=== PATIENT | female | born 1930 | race Caucasian/White ===

== ENCOUNTER 2017-05-22 16:37 | Emergency (ER) | payer MEDICARE, BC ==
[2017-05-22] MEDS: Sodium Chloride 0.9% 1,000 ML IV SCH ×2 (17:00→18:12)
[2017-05-22] MEDS ORDERED: Ondansetron 4 MG/2 ML SDV IVPUSH ONE (17:02)
--- NOTE | 2017-05-22 18:20 | EDM.PDOC ---
ED HPI GENERAL MEDICAL PROBLEM - General Chief Complaint: Neuro Symptoms/Deficits Stated Complaint: DISORIENTATION Time Seen by Provider: 05/22/17 16:37 Source of Information: Reports: Patient, EMS History Limitations: Reports: Altered Mental Status - History of Present Illness INITIAL COMMENTS - FREE TEXT/NARRATIVE: c/o heat stroke pt lives independently, EMS reports she was gardening for 3h, apparently found unresponsive in garden sitting on a bench, lives in assisted living at [facility] which is in [facility], T 103 by EMS, ice backs applied and dx with presumptive heat stroke, T 97.8 on arrival at ED, dense L hemiparesis with L facial droop and head and eyes deviated to the R, did answer some questions, could not move LUE or LLE after 20 minutes on return from CT she had inc'd movement of L side, now able to lift her LLE 1 foot off of the bed and scratch her nose, still quite weak on the L side portable CxR shows no discrete infiltrate, shallow breath, cardiomegaly d/w Dr Lao neurologist at [facility] who accepted her in transfer to ED, he does not recommend thrombolytics d/t her age pt with clinical dehydation with dec'd skin turgor, has BUN/creat 44/2.0 today increased from 22/0.7 two years ago CRP 2.2 suggesting possible infectious cause of her fever, does not appear pulmonary, u/a still pending WBC 14.9 and 84.6% segs c/w either heat stroke or possible ifnection does have a curious large red blanching rash on the inner aspect of her right thigh that has not changed in appearance in one hour, possibly ice burn from ice packs from EMS - Related Data Allergies Allergy/AdvReac Type Severity Reaction Status Date / Time Sulfa (Sulfonamide Allergy Rash Verified 01/18/15 13:17 Antibiotics) Home Meds: Home Meds Aspirin [Halfprin] 81 mg PO DAILY 01/18/15 [History] Calcium Carbonate [Calcium] 1 tab PO BID 01/18/15 [History] Fish Oil/[place]-3 Fatty Acids [Fish Oil 1,000 MG] 1 tab PO BID 01/18/15 [History] Multivit-Min/FA/Lycopene/Lut [Centrum Silver] 1 tab PO 1200 01/18/15 [History] SitaGLIPtin [Januvia] 50 mg PO 1200 01/18/15 [History] metFORMIN [Glucophage] 500 mg PO BID 01/18/15 [History] Glimepiride [Amaryl] 2 mg PO BIDMEALS tablet 01/23/15 [Rx] Alendronate [Fosamax] 70 mg PO Q7D@0600 #4 tablet 01/26/15 [Rx] Cefuroxime [Ceftin] 250 mg PO BID #14 tab 01/26/15 [Rx] traMADol [Ultram] 50 mg PO Q6H PRN #30 tablet 01/26/15 [Rx] Social & Family History - Tobacco Use Smoking Status *Q: Never Smoker Second Hand Smoke Exposure: No - Alcohol Use Days Per Week of Alcohol Use: 0 - Recreational Drug Use Recreational Drug Use: No ED ROS GENERAL - Review of Systems Review Of Systems: See Below Constitutional: Reports: No Symptoms HEENT: Reports: No Symptoms Respiratory: Reports: No Symptoms Cardiovascular: Reports: No Symptoms Endocrine: Reports: No Symptoms GI/Abdominal: Reports: No Symptoms : Reports: No Symptoms Musculoskeletal: Reports: No Symptoms Skin: Reports: No Symptoms Neurological: Reports: Trouble Speaking, Difficulty Walking, Weakness, Change in Speech Psychiatric: Reports: No Symptoms Hematologic/Lymphatic: Reports: No Symptoms Immunologic: Reports: No Symptoms ED EXAM, NEURO - Physical Exam Exam: See Below Exam Limited By: Altered Mental Status General Appearance: Alert, WD/WN, Other (speaks with hesitancy, good articulation, answers in complete sentences, O x 3) Eye Exam: Bilateral Eye: Other (pupils 3/3 mm reactive, conjugate, no nystagmus , tracks to midline but not to L, eyes and head turned to the R) Ears: Normal External Exam Nose: Normal Inspection, Normal Mucosa, No Blood Throat/Mouth: Normal Inspection, Normal Lips, Normal Oropharynx, Normal Voice, No Airway Compromise Head Exam: Atraumatic, Normocephalic Neck: Normal Inspection, Supple, Non-Tender, Full Range of Motion, Other (no bruit) Respiratory/Chest: No Respiratory Distress, Lungs Clear, Normal Breath Sounds, No Accessory Muscle Use, Chest Non-Tender Cardiovascular: Regular Rate, Rhythm, No Edema, No Gallop, No JVD, No Rub, Other (occasional premature beat, 2/6 GONZALEZ at LSB, quiet precordium) GI/Abdominal: Normal Bowel Sounds, Soft, Non-Tender, No Organomegaly, No Distention, No Mass DTR: 1+: Patella (R), Patella (L), 2+: Bicep (R), Bicep (L) Back Exam: Normal Inspection, Full Range of Motion, NT Extremities: Normal Inspection, Non-Tender, No Pedal Edema, Other (R ankle flex/ ext 5/5, 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, L hand jewelry casting model maker 3/5, wiggles toes, not able to flex/ext ankle on command, when I placed my fingers in her L palm and asked her to squeeze she used her R hand to squeeze the fingers of the L hand, L facial droop persistant, palpebral) Psychiatric: Flat Affect Skin Exam: Warm, Dry, Intact, Normal Color, Other (large ~25 x 20 bright red blanchable rash on inner aspect of R thigh, discrete linear geographic cutoff superiorly, irregular with lattice appearance and normal skin interposed inferiorly) Course - Vital Signs Last Recorded V/S: Last Vital Signs Temp 36.3 C 05/22/17 16:40 Pulse 86 05/22/17 16:40 Resp 22 H 05/22/17 16:40 BP 123/56 L 05/22/17 16:40 Pulse Ox 97 05/22/17 16:40 - Orders/Labs/Meds Orders: Active Orders 24 hr Category Date Time Status EKG Documentation Completion [RC] ASDIRECTED Care 05/22/17 16:57 Active Insert Urinary Catheter [OM.PC] Q24H Care 05/22/17 17:00 Ordered Urinary Catheter Assessment [RC] QSHIFT Care 05/22/17 16:56 Active Chest 1V Frontal [CR] Stat Exams 05/22/17 16:54 Taken Head wo Cont [CT] Stat Exams 05/22/17 16:55 Taken TROPONIN I [CHEM] Stat Lab 05/22/17 16:45 Received Sodium Chloride 0.9% [Normal Saline] 1,000 ml Med 05/22/17 17:15 Active IV ASDIRECTED EKG 12 Lead [EK] Routine Ther 05/22/17 16:57 Ordered Medication Orders Sodium Chloride (Normal Saline) 1,000 mls @ 999 mls/hr IV ASDIRECTED FARHANA Labs: Laboratory Tests 05/22/17 05/22/1705/22/17 Range/Units 16:45 16:45 16:45 WBC 14.9 H (4.5-12.0) X10-3/uL RBC 4.28 (3.23-5.20) x10(6)uL Hgb 13.5 (11.5-15.5) g/dL Hct 40.3 (30.0-51.3) % MCV 94.2 (80-96) fL MCH 31.5 (27.7-33.6) pg MCHC 33.4 (32.2-35.4) g/dL RDW 13.1 (11.5-15.5) % Plt Count 255 (125-369) X10(3)uL MPV 11.6 H (7.4-10.4) fL Neut % (Auto) 84.6 H (46-82) % Lymph % (Auto) 8.5 L (13-37) % [place] % (Auto) 5.1 (4-12) % Eos % (Auto) 1 (1.0-5.0) % Baso % (Auto) 1 (0-2) % Neut # (Auto) 12.5 H (1.6-8.3) # Lymph # (Auto) 1.3 (0.6-5.0) # Waller # (Auto) 0.8 (0.0-1.3) # Eos # (Auto) 0.2 (0.0-0.8) # Baso # (Auto) 0.1 (0.0-0.2) # PT 10.1 (8.7-11.1) INR 1.00 (0.89-1.13) Sodium 135 (135-145) mmol/L Potassium 4.7 D (3.5-5.3) mmol/L Chloride 102 (100-110) mmol/L Carbon Dioxide 22 L (23-29) mmol/L BUN 44 H D (8-23) mg/dL Creatinine 2.0 H* (0.6-1.3) mg/dL Est Cr Clr Drug Dosing TNP Estimated GFR (MDRD) 23 L (>60) BUN/Creatinine Ratio 22.0 H (9-20) Glucose 219 H D (80-116) mg/dL Calcium 10.1 (8.6-10.2) mg/dL Total Bilirubin 0.3 (0.1-1.3) mg/dL AST 22 D (5-27) IU/L ALT 21 D (14-26) IU/L Alkaline Phosphatase 39 L (56-112) IU/L C-Reactive Protein 2.2 H (0.0-1.0) mg/dL B-Natriuretic Peptide (0-100) pg/mL Total Protein 7.6 (6.0-8.0) g/dL Albumin 4.0 (2.9-4.5) g/dL Globulin 3.6 g/dL Albumin/Globulin Ratio 1.1 Urine Color (YELLOW) Urine Appearance (CLEAR) Urine pH (5.0-6.5) Ur Specific [place] (1.010-1.025) Urine Protein (NEGATIVE) mg/dL Urine Glucose (UA) (NEGATIVE) mg/dL Urine Ketones (NEGATIVE) mg/dL Urine Occult Blood (NEGATIVE) Urine Nitrite (NEGATIVE) Urine Bilirubin (NEGATIVE) Urine Urobilinogen (NEGATIVE) mg/dL Ur Leukocyte Esterase (NEGATIVE) Urine RBC (0) Urine WBC (0) Ur Squamous Epith Cells (NS,R,O) Urine Bacteria (NS) 05/22/17 05/22/17 Range/Units 16:45 17:43 WBC (4.5-12.0) X10-3/uL RBC (3.23-5.20) x10(6)uL Hgb (11.5-15.5) g/dL Hct (30.0-51.3) % MCV (80-96) fL MCH (27.7-33.6) pg MCHC (32.2-35.4) g/dL RDW (11.5-15.5) % Plt Count (125-369) X10(3)uL MPV (7.4-10.4) fL Neut % (Auto) (46-82) % Lymph % (Auto) (13-37) % Wall[place] % (Auto) (4-12) % Eos % (Auto) (1.0-5.0) % Baso % (Auto) (0-2) % Neut # (Auto) (1.6-8.3) # Lymph # (Auto) (0.6-5.0) # Waller # (Auto) (0.0-1.3) # Eos # (Auto) (0.0-0.8) # Baso # (Auto) (0.0-0.2) # PT (8.7-11.1) INR (0.89-1.13) Sodium (135-145) mmol/L Potassium (3.5-5.3) mmol/L Chloride (100-110) mmol/L Carbon Dioxide (23-29) mmol/L BUN (8-23) mg/dL Creatinine (0.6-1.3) mg/dL Est Cr Clr Drug Dosing Estimated GFR (MDRD) (>60) BUN/Creatinine Ratio (9-20) Glucose (80-116) mg/dL Calcium (8.6-10.2) mg/dL Total Bilirubin (0.1-1.3) mg/dL AST (5-27) IU/L ALT (14-26) IU/L Alkaline Phosphatase (56-112) IU/L C-Reactive Protein (0.0-1.0) mg/dL B-Natriuretic Peptide 175 H (0-100) pg/mL Total Protein (6.0-8.0) g/dL Albumin (2.9-4.5) g/dL Globulin g/dL Albumin/Globulin Ratio Urine Color Yellow (YELLOW) Urine Appearance Clear (CLEAR) Urine pH 5.0 (5.0-6.5) Ur Specific [place] 1.010 (1.010-1.025) Urine Protein Negative (NEGATIVE) mg/dL Urine Glucose (UA) >1000 H (NEGATIVE) mg/dL Urine Ketones Negative (NEGATIVE) mg/dL Urine Occult Blood Negative (NEGATIVE) Urine Nitrite Negative (NEGATIVE) Urine Bilirubin Negative (NEGATIVE) Urine Urobilinogen Normal (NEGATIVE) mg/dL Ur Leukocyte Esterase Negative (NEGATIVE) Urine RBC 0-5 (0) Urine WBC 0-5 (0) Ur Squamous Epith Cells Few H (NS,R,O) Urine Bacteria Few H (NS) Meds: Medications Generic Name Dose Route Start Last Admin Trade Name Freq PRN Reason Stop Dose Admin Sodium Chloride 1,000 mls @ 999 mls/hr 05/22/17 17:15 Normal Saline IV ASDIRECTED FARHANA Discontinued Medications Generic Name Dose Route Start Last Admin Trade Name Freq PRN Reason Stop Dose Admin Ondansetron HCl 4 mg 05/22/17 17:02 Zofran IVPUSH 05/22/17 17:03 ONETIME ONE Departure - Departure Time of Disposition: 18:32 Disposition: DC/Tfer to Hospice - Home 50 Condition: Good Clinical Impression: Acute CVA (cerebrovascular accident), Left hemiparesis, Apraxia complicating stroke, Fever, Leukocytosis, Left shift, Dehydration, Acute on chronic renal failure, Rash - Discharge Information Forms: ED Department Discharge - My Orders Last 24 Hours: My Active Orders 05/22/17 16:45 TROPONIN I [CHEM] Stat 05/22/17 16:54 Chest 1V Frontal [CR] Stat 05/22/17 16:55 Head wo Cont [CT] Stat 05/22/17 16:56 Urinary Catheter Assessment [RC] QSHIFT 05/22/17 16:57 EKG Documentation Completion [RC] ASDIRECTED EKG 12 Lead [EK] Routine 05/22/17 17:00 Insert Urinary Catheter [OM.PC] Q24H 05/22/17 17:15 Sodium Chloride 0.9% [Normal Saline] 1,000 ml IV ASDIRECTED - Assessment/Plan Last 24 Hours: My Active Orders 05/22/17 16:45 TROPONIN I [CHEM] Stat 05/22/17 16:54 Chest 1V Frontal [CR] Stat 05/22/17 16:55 Head wo Cont [CT] Stat 05/22/17 16:56 Urinary Catheter Assessment [RC] QSHIFT 05/22/17 16:57 EKG Documentation Completion [RC] ASDIRECTED EKG 12 Lead [EK] Routine 05/22/17 17:00 Insert Urinary Catheter [OM.PC] Q24H 05/22/17 17:15 Sodium Chloride 0.9% [Normal Saline] 1,000 ml IV ASDIRECTED
[2017-05-22 20:11] VITALS: BP 150/68
--- NOTE | 2017-05-26 11:14 | CR ---
INDICATION: CVA. CHEST, AP UPRIGHT: Poor inspiration. Right lung is clear. Left lung has some atelectatic changes over the mid to lower lung. Mild cardiomegaly without significant underlying failure, considering the poor inspiration. MTDD
== END 2017-05-22 18:45 | disposition hospice, home (50) ==
LOC: FB.ED 16:37
DX: I63.9 Cerebral infarction, unspecified (principal); R48.2 Apraxia; G81.94 Hemiplegia, unspecified affecting left nondominant side; N17.9 Acute kidney failure, unspecified; N18.9 Chronic kidney disease, unspecified; D72.829 Elevated white blood cell count, unspecified; E86.0 Dehydration; Z79.82 Long term (current) use of aspirin; Z88.2 Allergy status to sulfonamides
CPT/HCPCS: 36415; 51702; 70450; 71010; 80053; 81001; 83880; 84484; 85025; 85610; 86140; 93005; 96361; 96374; 99285; J2405; J7040

== ENCOUNTER 2017-06-18 11:45 | Emergency (ER) | payer MEDICARE, BC ==
--- NOTE | 2017-06-18 13:35 | CR ---
INDICATION: Crackles in bases, confusion. CHEST: AP and lateral upright views of the chest with two lateral views revealed the heart to be slightly enlarged. The aorta is tortuous with calcification in the arch and descending portion. Dextroconvex scoliosis of the thoracic spine of moderate degree is noted with demineralization compatible with osteoporosis. Evidence of previous fracture is noted at the proximal right humerus with healing. Parenchymal change is noted at the left lung base, which may be on the basis of atelectasis and possibly some minimal patchy pneumonia, and/or fibrosis. The right lung and pleural space were unremarkable. IMPRESSION: 1. Scarring versus linear atelectasis, possibly even minimal pneumonia at the left lower lobe. 2. ASHD with mild cardiomegaly. 3. Osteoporosis, scoliosis, and compression fracture severe at T12, which is progressively more severe than on the 01/20/2015 examination of the thoracic spine. MTDD
--- NOTE | 2017-06-18 15:03 | CT ---
INDICATION: Confusion, slow response this morning. Lethargic, history of falls. CVA one month ago. Right-sided weakness, slurred speech. CT HEAD WITHOUT CONTRAST: Serial contiguous 2.5 and 5-mm sections were obtained through the brain without contrast 06/18/2017 and compared with 2016. Total Exam DLP = 1898.72 mGy-cm. There is again noted calcification in the vertebral and internal carotid arteries. No shift of midline structures was identified. The ventricles are slightly more prominent than on the previous study, suggesting progressive central atrophy. Extensive decreased density is noted in the white matter with additional cortical abnormality - decreased density moderately extensive in the parietal - posteroparietal area on the right in an area of previous ischemia and compatible with encephalomalacia due to a thrombotic CVA in that area. The extensive low-density abnormality in the white matter, which appears similar to the previous study, is compatible with severe microvascular disease or possibly anoxic encephalopathy. This should be correlated clinically. The area of encephalomalacia extends from the area of the temporal lobe through the parietal lobe near the convexity. The scan was repeated due to the patient coughing. No bleeding site or hematoma was identified. No definite acute intracranial abnormality was seen. A large area of probable infarct is noted in the right basal ganglia. Ischemia was suggested in that area on the previous study to a much lesser extent than the extent of abnormality seen today. This area is felt to be most compatible with evolution of an area of lacunar infarct. What appears to be a retention cyst is noted in the left maxillary antrum. Minimal thickening of the lining of the base of the right frontal air cell is noted - no definite findings for acute sinusitis were seen. Mastoid air cells appear well aerated on the right with some opacified air cells on the left, raising question of moderate degree of mastoiditis - correlate clinically. No definite cranial abnormality was seen. IMPRESSION: 1. No definite acute intracranial abnormality - no bleeding site or hematoma. 2. Evolution of thrombotic CVA, areas of encephalomalacia in the parietal lobe , temporal lobe, and right basal ganglia. 3. Progressive central atrophy. 4. Severe white matter disease which may be on the basis of severe microvascular type changes or possibly anoxic encephalopathy - correlate clinically. 5. Calcifications in the vertebral and internal carotid arteries. 6. Cannot exclude left-sided mastoiditis. 7. Retention cyst left maxillary antrum with minimal thickening of the lining of the right frontal air cell base. Report was called to Dr. Madrid at 1241 hours, 06/18/2017. [facility]
[2017-06-18 16:07] VITALS: BP 118/61
--- NOTE | 2017-06-23 17:07 | ER ---
DATE SEEN: 06/18/2017 CHIEF COMPLAINT: She is now in the prison. She is status post 05/22/2017 heat stroke followed by a significant right CVA, was transferred to [place] for further care. She returned to the prison. SUBJECTIVE: The prison staff noted she has had a blank stare. She is more confused than usual and less comprehensive than usual. Dr. Barry ordered laboratory studies right before patient came, so they have been available for me to look at. Complete metabolic panel is normal, except for glucose of 70, slightly low; GFR considered to be 42; creatinine 1.2; BUN is 22; AST 23; SGOT 25. White count 7000, PMNs 64, lymphocytes 22, monos 9.2, hemoglobin 11.6, and platelets 150,000. CAT scan was performed before I was able to see the patient, and it was read as cortical abnormality, mild extensive change and decreased density in the posterior parietal area on the right, consistent with a previous documented ischemia and has significant encephalomalacia associated with a thrombotic CVA in that area. 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 She has mild calcification in vertebral and internal carotid arteries, and this suggests possible mild left mastoiditis. She has a large area of probable infarct in right basal ganglia, which was seen in the previous study but to a lesser extent. She has extensive progressive central atrophy. PAST MEDICAL HISTORY: Significant for congestive heart failure, type 2 diabetes, hypertension, chronic low back pain, acute on chronic kidney disease, GERD, and dyslipidemia with a left CVA previously documented in May 2017. The patient is not able to communicate. She does not respond more than minimal comentary, which is more grunts than specific words uttered. Information on habits claimed from the prison chart. REVIEW OF SYSTEMS: I was unable to perform review of systems. PHYSICAL EXAMINATION: VITAL SIGNS: Blood pressure 118/61, heart rate 79, oxygen saturation 98%, temperature 97.1, and respirations 18. GENERAL: Alert woman, who does not have receptive aphasia, does follow my eyes, but she has minimal commentary. She has flat affect and occasionally with minimal movements, groans as if the patient had pain. HEENT: Pupils equal, round, and reactive to light. Pharynx without abnormality, has good gag in place. Uvula midline. Tongue is midline. She had good tongue strength bilaterally. No facial asymmetry. No dysesthesia or hypoesthesia of the face. NECK: No bruits. No thyromegaly. No masses. No adenopathy. Neck is supple. LUNGS: Clear to auscultation without rales or rhonchi, except for posterior basilar significant crackles at the lower 50% of the left lung. No retraction. No chest wall pain with palpation. HEART: S1, S2. There is slight splitting of first heart sound. Soft murmur is heard. Murmur is systolic. ABDOMEN: Soft. No guarding. No abdominal discomfort. EXTREMITIES: Without edema. Deep tendon reflexes hypoactive in upper and lower extremities. No upgoing toes. Decreased strength in left leg compared to right. She has slight unsteadiness when she stands and has a very significant flat affect. Repeat CT unchanged, except for what appears to be slight new basilar ganglia changes, which are not reiterated on his summary, but Dr. Dudley noted a rather large area of probably infarct in right basal ganglia. Ischemia was suggested in the area, on the previous study was less than it is today, but no acute stroke, would suggest evolution of area of lacunar infarct. DIAGNOSTIC STUDIES: Chest x-ray reveals left lower lobe infiltrate noted, minimal pneumonia in left lower lobe. Atherosclerotic heart disease, osteoporosis, scoliosis, and compression fractures at T12, more severe than was noted on 01/20/2015 of the thoracic spine. DIAGNOSIS: PNEUMONIA; LATERAL WALL CORONARY ISCHEMIA DISCUSSSION:: 1. On the basis of the laboratory work that was performed before I saw the patient does not have neutrophilic leukocytosis, but the concern about potential atelectasis and left lower infiltrate is somewhat concerning and suggests possibly pneumonia. Plan: Consequently, the patient will be treated with Levaquin 500 mg one daily. I did check the database on Up-To- Date, and it suggests appropriate for her to be treated with that dose. She has a good GFR, and consequently, the dose may not need to be modified. 2. She has probable lateral wall ischemia with poor T-wave development and inferior lateral wall ischemia, poor T-wave flattening in aVF, and T-wave inversion in II, aVL. Plan: Treat with antibiotic. Follow up with doctor in a week and earlier if worse. Use albuterol nebs 4 times a day for a week. The patient was seen within approximately 5 minutes of arrival. The patient was seen at 1205 hours. OTHER DIAGNOSES: Diabetes, congestive heart failure, hypertension, chronic back pain. No evidence for chronic kidney disease, presently gastroesophageal reflux disease and dyslipidemia with significant status post right large cerebrovascular accident with basal ganglia involvement and also temporal lobe and right parietal lobe involvement of cerebrovascular accident. Severe white matter changes and microvascular changes associated with this and possibly smaller but insignificant radiological findings of possible left mastoiditis. /[id number] MCKENZIE/SUNSHINE CASTRO
--- NOTE | 2017-07-03 09:12 | ER ---
DATE SEEN: 06/18/2017 DIAGNOSES: 1. Left lower lobe infiltrate pneumonia. 2. Atherosclerotic heart disease. 3. Osteoporosis. 4. Scoliosis. 5. Compression fracture, T12. 6. Coronary artery ischemia and lateral wall, heart. 7. Diabetes. 8. Congestive heart failure. 9. Hypertension. 10.Chronic back pain. 11.Status post right large cerebrovascular accident with basal ganglia involvement, temporal lobe and right parietal lobe involvement. /[id number] MCKENZIE/SUNSHINE
== END 2017-06-18 13:25 | disposition home or self-care (01) ==
LOC: FB.ED 11:45
DX: I13.0 Hypertensive heart and chronic kidney disease with heart failure and stage 1 through stage 4 chronic kidney disease, or unspecified chronic kidney disease (principal); I50.9 Heart failure, unspecified; J18.9 Pneumonia, unspecified organism; E11.9 Type 2 diabetes mellitus without complications; N18.9 Chronic kidney disease, unspecified; M41.9 Scoliosis, unspecified; I25.10 Atherosclerotic heart disease of native coronary artery without angina pectoris; M48.54XA Collapsed vertebra, not elsewhere classified, thoracic region, initial encounter for fracture; K21.9 Gastro-esophageal reflux disease without esophagitis; E78.5 Hyperlipidemia, unspecified; M81.0 Age-related osteoporosis without current pathological fracture; Z86.73 Personal history of transient ischemic attack (TIA), and cerebral infarction without residual deficits
CPT/HCPCS: 36415; 70450; 71020; 84484; 93005; 99284; 99285